=== PATIENT | male | born 1980 ===

== ENCOUNTER 2018-07-15 08:18 | Emergency (ER) | payer MEDICAID ==
[2018-07-15 08:28] VITALS: BMI 27.8
[2018-07-15 08:29] VITALS: TEMP 99
[2018-07-15] MEDS ORDERED: Naproxen 550 mg Tab PO STA (09:09)
--- NOTE | 2018-07-15 10:24 | ED PDOC ---
Arrival/HPI - General Chief Complaint: Lower Extremity Problem/Injury Time Seen by Provider: 07/15/18 09:07 Historian: Patient - History of Present Illness Narrative History of Present Illness (Text): 07/15/18 10:22 38-year-old male reports injuring his left foot when it was caught between 2 pallets at work today prior to arrival. Otherwise: (-) other injury, (-) numbness, (-) decrease in ROM. Past Medical History - Infectious Disease Hx of Infectious Diseases: None - Psychiatric Hx Substance Use: No - Anesthesia Hx Anesthesia: No Family/Social History Family/Social History: No Known Family HX Smoking Status: Current Some Days Smoker Hx Alcohol Use: No Hx Substance Use: No Allergies/Home Meds Allergies/Adverse Reactions: Allergies No Known Allergies Allergy (Verified 07/15/18 08:31) Review of Systems - Review of Systems Constitutional: absent: Fatigue, Fevers Musculoskeletal: Arthralgias, Joint Swelling. absent: Back Pain, Neck Pain Skin: absent: Rash, Pruritis, Skin Lesions Physical Exam - Physical Exam Narrative Physical Exam (Text): 07/15/18 10:23 GENERAL APPEARANCE: Patient is awake, alert, oriented x 3, in mild painful distress. SKIN: Warm, dry, (-) skin leasions or rashes. LOWER EXTREMITY: (+) Tenderness, (+) swelling, (+) mild ecchymosis of distal dorsal aspect of the L foot. (-) crepitus, (-) deformity. Tendon function intact. (-) distal neurovascular deficit. (+) 2 point discrimination. Remainder of foot, digits and ankle: (-) injury except. Vital Signs Temp Pulse Resp BP Pulse Ox 07/15/18 08:28 99.0 F 89 16 153/89 H 97 Medical Decision Making ED Course and Treatment: 07/15/18 10:24 Plan : - XR L foot - Naprosyn PO 07/15/18 11:07 XR left foot: no fracture, no dislocation, as read by ADA Patient advised that official radiology read of XR is still pending and will call the patient if there is any discrepancy within 24 hours. X-ray results discussed with the patient in great detail. Diagnosis of foot contusion scheduled the patient, advised to rest, ice, and elevate the foot. Orthoglass short leg splint applied by ADA. Neurovascular intact post splint application. Patient instructed on crutch walking. Advised to follow up with or the referral provided in 1-2 days without fail. Advised to take medication as prescribed. Return to the emergency room at any time for any new or worsening symptoms. Patient states he fully agrees with and understands discharge instructions. States that he agrees with the plan and disposition. Verbalized and repeated discharge instructions and plan. I have given the patient opportunity to ask any additional questions. - RAD Interpretation Radiology Orders: 07/15/18 09:09 FOOT LEFT 3 VIEWS ROUTINE [RAD] Stat - Medication Orders Current Medication Orders: Discontinued Medications Naproxen (Anaprox Ds) 550 mg PO ONCE STA Stop: 07/15/18 09:10 Last Admin: 07/15/18 09:17 Dose: 550 mg - PA / [employer] MANAGER / Resident Statement /DO has reviewed & agrees with the documentation as recorded. Disposition/Present on Arrival - Present on Arrival Any Indicators Present on Arrival: No History of DVT/PE: No History of Uncontrolled Diabetes: No Urinary Catheter: No History of Decub. Ulcer: No History Surgical Site Infection Following: None - Disposition Have Diagnosis and Disposition been Completed?: Yes Diagnosis: Contusion of left foot Disposition: HOME/ ROUTINE Disposition Time: 11:00 Patient Plan: Discharge Condition: STABLE Additional Instructions: Thank you for letting us take care of you today. You were treated for left foot contusion. The emergency medical care you received today was directed at your acute symptoms. If you were prescribed any medication, please fill it and take as directed. Rest, ice and elevate your foot. It may take several days for your symptoms to resolve. Return to the Emergency Department if your symptoms worsen, do not improve, or if you have any other problems. Please contact your doctor in 2 days for re-evaluation and follow up / or call one of the physicians/clinics you have been referred to that are listed on the Patient Visit Information form that is included in your discharge packet. Bring any paperwork you were given at discharge with you along with any medications you are taking to your follow up visit. Our treatment cannot replace ongoing medical care by a primary care provider (PCP) outside of the emergency department. Thank you for allowing the [facility] team to be part of your care today. If you had an X-Ray : A Radiologist will review the ED reading if any change in treatment is needed we will contact you. Prescriptions: Naproxen 500 mg PO BID #30 tab Referrals: FAMILY PROVIDER,NO [Primary Care Provider] - Follow up with primary Sedrick Moya MD [Staff Provider] - Follow up with primary Forms: [employer] ([employer]), WORK NOTE
--- NOTE | 2018-07-15 11:17 | RAD ---
Date of service: 07/15/2018 PROCEDURE: Left Foot Radiographs. HISTORY: pain COMPARISON: None. FINDINGS: BONES: Normal. No fracture. JOINTS: Normal. SOFT TISSUES: Normal. OTHER FINDINGS: None. IMPRESSION: Negative study
[2018-07-15 11:26] VITALS: BP 140/78; PULSE 72; RESP 18; O2SAT 99
== END 2018-07-15 11:16 | disposition home or self-care (01) ==
LOC: ED 08:18
DX: S90.32XA Contusion of left foot, initial encounter (principal); W23.0XXA Caught, crushed, jammed, or pinched between moving objects, initial encounter; Y92.89 Other specified places as the place of occurrence of the external cause; Y99.0 Civilian activity done for income or pay